=== PATIENT | female | born 1970 | race Two or more races ===

== ENCOUNTER 2020-01-25 06:20 | Day surgery (SDC) | payer OTHER ==
[~2020-01-25] VITALS: Ht 165.1 cm; Wt 54.4 kg
[2020-01-25] VITALS (9 sets, daily range): BP systolic 88–111; BP diastolic 57–75
[~2020-01-25 06:20] MED LIST: PREVACID15 MG ORAL
[2020-01-25] MEDS ORDERED: Lidocaine 1% Plain 30 ml INJ ONE (06:55)
[2020-01-25] MEDS ORDERED: LR 1000ml 1,000 ML IVLG SCH ×2 (07:00→07:08)
--- NOTE | 2020-01-25 07:05 | Pre-Procedure Note/Attestation ---
Pre-Procedure Note/Attestation Complete Prior to Procedure Planned Procedure: not applicable Procedure Narrative: Colonoscopy, possible biopsy, polypectomy, hemostasis, submucosal injection Indications for Procedure Pre-Operative Diagnosis: cancer screening Attestation I attest that I discussed the nature of the procedure; its benefits; risks and complications; and alternatives (and the risks and benefits of such alternatives ), prior to the procedure, with the patient (or the patient's legal brewery representative). I attest that, if there was a reasonable possibility of needing a blood transfusion, the patient (or the patient's legal brewery representative) was given the [facility] standardized written summary, pursuant to the [place] [employer] Blood Safety Act ([place] Health and Safety Code # 1645, as amended). I attest that I re-evaluated the patient just prior to the surgery and that there has been no change in the patient's H&P, except as documented below: Olga López MD Jan 25, 2020 07:05
--- NOTE | 2020-01-25 07:13 | Anethesia Preoperative Eval ---
Anesthesia Pre-op PMH/ROS General Date of Evaluation: Jan 25, 2020 Time of Evaluation: 06:51 Anesthesiologist: Raman ASA Score: ASA 1 Mallampati Score Class I : Soft palate, uvula, fauces, pillars visible Class II: Soft palate, uvula, fauces visible Class III: Soft palate, base of uvula visible Class IV: Only hard plate visible Mallampati Classification: Class I Surgeon: Rene Diagnosis: Abd Pain Surgical Procedure: Colonoscopy Anesthesia History: none Family History: no anesthesia problems Allergies: Coded Allergies: CHOCOLATE FLAVOR (Verified Allergy, Severe, throat closes up, 01/23/20) Medications: see eMAR Patient NPO?: Yes Past Medical History Gastrointestinal/Genitourinary: Reports: GERD Anesthesia Pre-op Phys. Exam Physician Exam Last Vital Signs Date Time Temp Pulse Resp B/P (MAP) Pulse Ox O2 Delivery O2 Flow Rate FiO2 01/25/20 06:49 Room Air 01/25/20 06:47 97.0 46 16 100/57 99 Constitutional: NAD Neurologic: CN 2-12 intact Cardiovascular: RRR Respiratory: CTA Gastrointestinal: S/NT/ND Airway Exam Mallampati Score: Class I MO: full ROM: full Teeth: intact Anesthesia Pre-op A/P Labs Urine Test Test 01/25/20 06:35 Urine HCG, Qualitative Negative (NEGATIVE) Risk Assessment & Plan Assessment: ASA 1 Plan: TIVA Status Change Before Surgery: No Lars Camargo MD Jan 25, 2020 07:13
--- NOTE | 2020-01-25 07:14 | Immediate Post-Op Evaluation ---
Immediate Post-Op Evalulation Immediate Post-Op Evalulation Procedure: Colonoscopy Date of Evaluation: Jan 25, 2020 Time of Evaluation: 08:19 IV Fluids: 600 LR Blood Products: 0 Estimated Blood Loss: 3 Urinary Output: 0 Blood Pressure Systolic: 91 Blood Pressure Diastolic: 63 Pulse Rate: 55 Respiratory Rate: 16 O2 Sat by Pulse Oximetry: 100 Temperature (Fahrenheit): 97.8 Pain Score (1-10): 1 Nausea: No Vomiting: No Complications 0 Patient Status: awake, reacts, patent, none Hydration Status: adequate Lars Camargo MD Jan 25, 2020 07:14
[2020-01-25] MEDS ORDERED: HYDROcodone/Acetamin 7.5/325 tab ORAL PRN (07:15)
[2020-01-25] MEDS ORDERED: oxyCODONE HCL/Acetaminophen 5/325mg ORAL PRN (07:15)
[2020-01-25] MEDS ORDERED: LORazepam Inj 2mg/ml 1ml IV PRN (07:15)
[2020-01-25] MEDS ORDERED: fentaNYL 100 mcg/2 mL IV PRN (07:15)
[2020-01-25] MEDS ORDERED: Midazolam 2mg/2ml Inj IVP PRN (07:15)
[2020-01-25] MEDS ORDERED: Meperidine 25mg/0.5ml Inj (FOR RIGORS ONLY) IV PRN (07:15)
[2020-01-25] MEDS ORDERED: Hydromorphone 0.5mg/0.5ml inj IVP PRN (07:15)
[2020-01-25] MEDS ORDERED: Labetalol 5mg/ml 20ml vial IV PRN (07:15)
[2020-01-25] MEDS ORDERED: Atropine Sulfate 0.4mg/ml inj IVP PRN (07:15)
[2020-01-25] MEDS ORDERED: Ketorolac 30mg Inj IV PRN ×2 (07:15)
[2020-01-25] MEDS ORDERED: DiphenhydrAMINE 50mg/ml Inj IVP PRN (07:15)
[2020-01-25] MEDS ORDERED: Metoclopramide 10mg/2ml Inj IVP PRN (07:15)
[2020-01-25] MEDS ORDERED: HYDROcodone/Acetamin 5/325 tab ORAL PRN (07:15)
--- NOTE | 2020-01-25 07:15 | 48 Hour Post Anesthesia Eval ---
Post Anesthesia Evaluation Procedure: Colonoscopy Date of Evaluation: Jan 25, 2020 Time of Evaluation: 10:23 Blood Pressure Systolic: 103 0: 76 Pulse Rate: 62 Respiratory Rate: 18 Temperature (Fahrenheit): 98 O2 Sat by Pulse Oximetry: 100 Airway: patent Nausea: No Vomiting: No Pain Intensity: 1 Hydration Status: adequate Cardiopulmonary Status: Stable Mental Status/LOC: patient returned to baseline Follow-up Care/Observations: 0 Post-Anesthesia Complications: 0 Follow-up care needed: ready to discharge Lars Camargo MD Jan 25, 2020 07:15
--- NOTE | 2020-01-25 08:00 | Endoscopy Procedure Note ---
Endoscopy Procedure Note General Indication for Procedure: cancer screening Procedures Performed: colonoscopy Operative Findings/Diagnosis: sigmoid polyp x 2 Specimen: yes Pt Tolerated Procedure Well: Yes Estimated Blood Loss: minimal Anesthesia Anesthesiologist: Lars Camargo MD Anesthesia: moderate sedation Medications Medication Given: see anesthesia record Inserted Devices Implant(s) used?: No Quality Quality of Bowel Preparation: Excellent Did scope reach the cecum?: Yes Was there any complications?: No GI Core Measures 50 yrs or older w/o bx or poly: No 10yrs. F/U recommended: No If not recommended, why?: Above average risk Olga López MD Jan 25, 2020 08:00
--- NOTE | 2020-01-25 09:15 | Operative Note - Dictated ---
DATE OF OPERATION: 01/25/2020 PREPROCEDURE DIAGNOSIS: Cancer screening. POSTPROCEDURE DIAGNOSES: Sigmoid polyp x2, colon diverticulosis, moderate internal hemorrhoids. PROCEDURE: Colonoscopy with cold forceps biopsy. SURGEON: Olga López MD. ANESTHESIOLOGIST: Lars Camargo MD. ANESTHESIA: Propofol sedation. INDICATION FOR PROCEDURE: The patient is a 49-year-old female, who had never had a colonoscopy. In light of her age, it was determined at this time to proceed with the first time colonoscopy. She requires anesthesia for possible redundant colon and prolonged procedure. DESCRIPTION OF PROCEDURE: Upon consent of the patient, the patient was brought to the procedure room and placed in a left lateral decubitus position. Once adequate sedation was established with propofol drip, digital rectal exam was performed which showed anterior anal skin tag and moderate internal hemorrhoids. An Olympus colonoscope was advanced through the anus and into the rectum. The descending colon, splenic flexure, transverse colon, hepatic flexure, ascending colon were visualized. The cecum was easily reached. The ileocecal valve and appendiceal orifice were identified. The patient's prep was noted to be good. The terminal ileum was intubated, was noted to be normal. Of note, there was diverticulosis from the sigmoid colon to the transverse colon. The sigmoid colon was also redundant. The colonoscope was slowly withdrawn. There was noted to be two benign-appearing polyps in the sigmoid, which were removed with cold forceps biopsy and sent off the field as separate specimens. The post polypectomy site was noted to have no active bleeding. Upon reaching the rectum, the colonoscope was retroflexed. There was noted to be mild internal hemorrhoids. The scope was straightened, air was evacuated from the rectum, and the colonoscope was removed. The patient was awakened from anesthesia and brought to postanesthesia recovery room in stable condition. There were no complications. IMPRESSION: Sigmoid polyp x2, diverticulosis, mild internal hemorrhoids. PLAN: Repeat colonoscopy in 5 years, continue high fiber diet, yearly followup. Olga López M.D. DR: ARMANDO JOB#: [id number] CC: Gaby Carranza M.D. Susan Baker, M.D.
== END 2020-01-25 09:20 | disposition home or self-care (01) ==
LOC: GAS 06:20
DX: Z12.11 Encounter for screening for malignant neoplasm of colon (principal); K63.5 Polyp of colon; K57.30 Diverticulosis of large intestine without perforation or abscess without bleeding; K64.8 Other hemorrhoids; K21.9 Gastro-esophageal reflux disease without esophagitis
CPT/HCPCS: 45380; 81025; 94003; J2001; J2250; 94150